=== PATIENT | male | born 1965 | race Caucasian/White ===

== ENCOUNTER 2017-10-20 13:21 | Inpatient (IN) | payer OTHER ==
[2017-10-20 14:14] VITALS: BMI 25.7
--- NOTE | 2017-10-20 16:39 | HP ---
"COWS - Scale Resting Pulse: 0= [place] 80 or Below Sweatin= Beads of Sweat on Face Restless Observation: 3= Extraneous Movement Pupil Size: 0= Normal to Room Light Bone or Joint Aches: 1= Mild Discomfort (Back pain r/t withdrawal) Runny Nose/ Eye Tearin= Runny Nose/Eyes GI Upset > 30mins: 0= None Tremor Observation: 2= Slight Tremor Visible Yawning Observation: 0= None Anxiety or Irritability: 1=Feels Anxious/Irritable Goose Flesh Skin: 0=Smooth Skin COWS Score: 12 Admission [facility] Chief Complaint: Here for heroin withdrawal. Allergies/Adverse Reactions: Allergies Allergy/AdvReac Type Severity Reaction Status Date / Time No Known Allergies Allergy Verified 10/20/17 15:35 History of Present Illness: Heroin use started at age 16. Has been using consistently for past 16 years. Had period of sobriety for 19 months, in 1999, while in residential treatment. Denies seizures or blackouts. Denies thoughts of harming self or others. Denies other illicit substance use - states it must have been cut into my heroin. Denies previous methadone or suboxone program. Smokes 15 cigarettes per day. Attempted to detox on own and now here for help detoxing. Search Terms: Ernst Tomlinson, 1965 Search Date: 10/20/2017 05:08:21 PM The Drug Utilization Report below displays all of the controlled substance prescriptions, if any, that your patient has filled in the last twelve months. The information displayed on this report is compiled from pharmacy submissions to the Department, and accurately reflects the information as submitted by the pharmacies. This report was requested by: Fatmata Snyder | Reference #: [id number] There are no results for the search terms that you entered. Exam Limitations: No Limitations - Ebola screening Have you traveled outside of the country in the last 21 days: No Have you had contact with anyone from an Ebola affected area: No Have you been sick,other than usual withdrawal symptoms: No Do you have a fever: No - Review of Systems Constitutional: Changes in sleep (Difficulty falling asleep and staying asleep) EENT: reports: Blurred Vision (Wears reading glasses), Nose Congestion (r/t w/ drawal), Dental Problems (Broken and missing teeth. Denies difficulty chwing or swallowing) Respiratory: reports: No Symptoms reported, Other (Asthma as a child. No exacerbation since then.) Cardiac: reports: No Symptoms Reported, Other (Denies chest pain, irregular heart beats, dyspnea.) GI: reports: No Symptoms Reported : reports: No Symptoms Reported Musculoskeletal: reports: Back Pain (r/t withdrawal) Integumentary: reports: No Symptoms Reported Neuro: reports: Tremors (r/t withdrawal) Endocrine: reports: No Symptoms Reported Hematology: reports: No Symptoms Reported Psychiatric: reports: Orientated x3, Anxious (r/t w/drawal) Patient History - Patient Medical History Hx Anemia: No Hx Asthma: Yes (as a child) Hx Chronic Obstructive Pulmonary Disease (COPD): No Hx Cardiac Disorders: No Hx Hypertension: No Hx Hypercholesterolemia: No Hx Pacemaker: No HX Cerebrovascular Accident: No Hx Seizures: No Hx Dementia: No Hx Diabetes: No Hx Gastrointestinal Disorders: No Hx Liver Disease: No Hx Genitourinary Disorders: No Hx Sexually Transmitted Disorders: Yes (gonorrhea at age 19) Hx Renal Disease (ESRD): No Hx Thyroid Disease: No Hx Human Immunodeficiency Virus (HIV): No (Last tested in 1999. Refuses testing. ) Hx Hepatitis C: No Hx Depression: No Hx Suicide Attempt: No Hx Schizophrenia: No - Patient Surgical History Past Surgical History: No Hx Neurologic Surgery: No Hx Cataract Extraction: No Hx Cardiac Surgery: No Hx Lung Surgery: No Hx Breast Surgery: No Hx Breast Biopsy: No Hx Abdominal Surgery: No Hx Appendectomy: No Hx Cholecystectomy: No Hx Genitourinary Surgery: No Hx Section: No Hx Orthopedic Surgery: No Anesthesia Reaction: No - PPD History Previous Implant?: Yes Documented Results: Negative w/o proof Implanted On Prior R Admission?: No PPD to be Administered?: Yes - Smoking Cessation Smoking history: Current every day smoker Have you smoked in the past 12 months: Yes Aproximately how many cigarettes per day: 15 Hx Chewing Tobacco Use: No Initiated information on smoking cessation: Yes 'Breaking Loose' booklet given: 10/20/17 - Substance & Tx. History Hx Alcohol Use: Yes Hx Substance Use: Yes Substance Use Type: Heroin Hx Substance Use Treatment: Yes (residential facility in 1999) - Substances Abused Heroin Route: Inhalation (Sniff) Frequency: Daily Amount used: 12-15 bags Age of first use: 16 Date of Last Use: 10/20/17 (7 am) Alcohol Route: Oral Frequency: 1-2 times per week Amount used: 3-6 12 oz beers Age of first use: 16 Date of Last Use: 10/18/17 Admission Physical Exam [facility] - Vital Signs Vital Signs: Vital Signs - 24 hr 10/20/17 14:13 Temperature 96.9 F L Pulse Rate 55 L Respiratory 18 Rate Blood Pressure 122/82 - Physical General Appearance: Yes: Tremorous (Mild tremors felt in hands), Sweating, Anxious HEENTM: Yes: EOMI, Hearing grossly Normal, Normal ENT Inspection, Normal Voice, NARCISA, Rhinorrhea (clear) Respiratory: Yes: Lungs Clear, Normal Breath Sounds, No Respiratory Distress Neck: Yes: No masses,lesions,Nodules, Supple Breast: Yes: Breast Exam Deferred Cardiology: Yes: Regular Rhythm, S1, S2, Bradycardia Abdominal: Yes: Non Tender, Flat, Increased Bowel Sounds Genitourinary: Yes: Within Normal Limits Back: Yes: Normal Inspection Musculoskeletal: Yes: full range of Motion, Gait Steady, Other (Crepitus of both knees upon extension. No c/o tenderness. No swelling. No ertythema or increased warmth.) Extremities: Yes: Normal Capillary Refill, Normal Range of Motion, Non-Tender, Tremors (Mild of hands upon arm extension) Neurological: Yes: windows 7 deployment lead II-XII NML intact, Fully Oriented, Alert, Motor Strength 5/5 Integumentary: Yes: Normal Color, Dry, Warm Lymphatic: Yes: Within Normal Limits - Diagnostic (1) Opioid dependence with withdrawal Current Visit: Yes Status: Acute (2) Nicotine dependence with withdrawal Current Visit: Yes Status: Acute Qualifiers: Nicotine product type: cigarettes Qualified Code(s): F17.213 - Nicotine dependence, cigarettes, with withdrawal (3) Bradycardia Current Visit: Yes Status: Chronic Cleared for Admission [facility] - Detox or Rehab [facility] Level of Care: Medically Supervised Detox Regimen/Protocol: Methadone [facility] Breath Alcohol Content Breath Alcohol Content: 0 Urine Drug Screen - Results Drug Screen Negative: No Urine Drug Screen Results: KAYDEN-Cocaine, OPI-Opiates, BZO-Benzodiazepines"
[2017-10-20] MEDS ORDERED: MAGNESIUM CITRATE 300 ML BOTTLE PO PRN (16:59)
[2017-10-20] MEDS ORDERED: MENTHOL/PHENOL 1 EACH UD MM PRN (16:59)
[2017-10-20] MEDS ORDERED: NICOTINE POLACRILEX 2 MG GUM BC PRN (16:59)
[2017-10-20] MEDS ORDERED: guaiFENesin/D-METHORPHAN HB 10 ML UNIT-DOSE CUPS PO PRN (16:59)
[2017-10-20] MEDS ORDERED: hydrOXYzine PAMOATE 50 MG CAPSULE (FP) PO PRN (16:59)
[2017-10-20] MEDS ORDERED: LOPERAMIDE HCL 2 MG CAPSULE PO PRN (16:59)
[2017-10-20] MEDS ORDERED: IBUPROFEN 400 MG TABLET (FP) PO PRN (16:59)
[2017-10-20] MEDS ORDERED: MAG HYDROX/AL HYDROX/SIMETH 30 ML UNIT-DOSE CUP PO PRN (16:59)
[2017-10-20] MEDS ORDERED: MAGNESIUM HYDROX 2400MG/30ML ORAL SUSPENSION 30 ML CUP PO PRN (16:59)
[2017-10-20] MEDS ORDERED: P-EPHED 60MG/TRIPROLIDI 2.5MG TABLET PO PRN (16:59)
[2017-10-20] MEDS ORDERED: ACETAMINOPHEN 325 MG TABLET (FP) PO PRN (16:59)
[2017-10-20] MEDS ORDERED: METHADONE HCL 10 MG TABLET (FOR DETOX USE ONLY) PO ONE ×2 (18:30→23:00)
[2017-10-20] MEDS: diazePAM 5 MG TABLET PO PRN (19:59)
[2017-10-20] MEDS: MELATONIN 5 MG TABLETS PO PRN (22:23)
[2017-10-20] MEDS: THIAMINE HCL 100 MG TABLET (FP) PO SCH (22:23)
[2017-10-21 02:33] LABS: URINE APPEARANCE CLEAR; URINE BILIRUBIN NEGATIVE (<2.0 mg/dL); URINE COLOR YELLOW; URINE GLUCOSE (UA) NEGATIVE (NEGATIVE); URINE KETONE NEGATIVE (NEGATIVE); URINE LEUK ESTERASE NEGATIVE (NEGATIVE); URINE NITRITE NEGATIVE (NEGATIVE); URINE PROTEIN NEGATIVE (NEGATIVE)
[2017-10-21] MEDS: diazePAM 5 MG TABLET PO PRN (09:19)
[2017-10-21] MEDS ORDERED: METHADONE HCL 10 MG TABLET (FOR DETOX USE ONLY) PO ONE (10:00)
[2017-10-21] MEDS: PRENATAL VITAMINS W/ FOLIC ACID TABLET (FP) PO SCH (10:19)
[2017-10-21] MEDS: NICOTINE 21 MG/24 HOURS TOPICAL PATCH TD SCH (10:19)
[2017-10-21 10:58] LABS: HEMATOCRIT 41.1 % (35.4-49); HEMOGLOBIN 14.2 GM/dL (11.7-16.9); MCH 33.4 pg (25.7-33.7); MCHC 34.5 g/dl (32.0-35.9); MEAN CELL VOLUME 96.7 fl (80-96); MEAN PLT VOLUME 10.8 fl (7.5-11.1); PLATELET COUNT 98 K/MM3 (134-434); RBC 4.25 M/mm3 (4.00-5.60); WHITE BLOOD COUNT 5.9 K/mm3 (4.0-10.0)
[2017-10-21 11:17] LABS: ALBUMIN 3.3 g/dl (3.4-5.0); ANION GAP 6 (8-16); BILIRUBIN,TOTAL 0.4 mg/dL (0.2-1.0); BLOOD UREA NITROGEN 13 mg/dL (7-18); CALCIUM 8.2 mg/dL (8.5-10.1); CHLORIDE 106 mmol/L (98-107); CO2 31 mmol/L (21-32); CREATININE 0.6 mg/dL (0.7-1.3); GLUCOSE,RANDOM 82 mg/dL (74-106); POTASSIUM 4.1 mmol/L (3.5-5.1); SGOT/AST 22 U/L (15-37); SGPT/ALT 37 U/L (12-78); SODIUM 143 mmol/L (136-145); TOT PROT 5.8 g/dl (6.4-8.2)
[2017-10-21 11:18] LABS: ALK PHOS 48 U/L (45-117)
--- NOTE | 2017-10-21 13:11 | PN ---
S COWS - Scale Resting Pulse: 0= [place] 80 or Below Sweatin= No chills or Flushing Restless Observation: 1= Difficult to Sit Still Pupil Size: 0= Normal to Room Light Bone or Joint Aches: 2= Severe Diffuse Aches Runny Nose/ Eye Tearin= None GI Upset > 30mins: 0= None Tremor Observation of Outstretched Hands: 2= Slight Tremor Visible Yawning Observation: 1= 1-2x During Session Anxiety or Irritability: 2=Irritable/Anxious Goose Flesh Skin: 3=Piloerection COWS Score: 11 S Progress Note (SOAP) Subjective: Interrupted Sleep, Fatigue, Body Aches, Anxious. Objective: PATIENT A & O X 3, OBSERVED AMBULATING ON UNIT. NO ACUTE DISTRESS. 10/21/17 13:09 Vital Signs Temperature 98.1 F 10/21/17 09:34 Pulse Rate 53 L 10/21/17 09:34 Respiratory Rate 18 10/21/17 09:34 Blood Pressure 124/79 10/21/17 09:34 O2 Sat by Pulse Oximetry (%) Laboratory Tests 10/20/17 10/21/17 10/21/17 23:24 07:00 07:00 WBC 5.9 RBC 4.25 Hgb 14.2 Hct 41.1 MCV 96.7 H MCH 33.4 MCHC 34.5 RDW 14.0 Plt Count 98 L MPV 10.8 Platelet Comment No clumping noted Sodium 143 Potassium 4.1 Chloride 106 Carbon Dioxide 31 Anion Gap 6 L BUN 13 Creatinine 0.6 L Creat Clearance w eGFR > 60 Random Glucose 82 Calcium 8.2 L Total Bilirubin 0.4 AST 22 ALT 37 Alkaline Phosphatase 48 Total Protein 5.8 L Albumin 3.3 L Urine Color Yellow Urine Appearance Clear Urine pH 5.0 Ur Specific [place] 1.016 Urine Protein Negative Urine Glucose (UA) Negative Urine Ketones Negative Urine Blood Negative Urine Nitrite Negative Urine Bilirubin Negative Urine Urobilinogen 2.0 Ur Leukocyte Esterase Negative LABS NOTED. RPR RESULT PENDING. 10/21/17 13:11 Assessment: 10/21/17 13:09 WITHDRAWAL SYMPTOMS. THROMBOCYTOPENIA. 10/21/17 13:11 Plan: CONTINUE DETOX.
--- NOTE | 2017-10-21 16:29 | EKG ---
Test Reason : Blood Pressure : / mmHG Vent. Rate : 055 BPM Atrial Rate : 055 BPM P-R Int : 144 ms QRS Dur : 108 ms QT Int : 442 ms P-R-T Axes : 028 084 036 degrees QTc Int : 422 ms SINUS BRADYCARDIA OTHERWISE NORMAL ECG NO PREVIOUS ECGS AVAILABLE Confirmed by Davis Webster MD ([id number]) on 10/21/2017 4:29:07 PM Referred By: Confirmed By:Davis Webster MD
[2017-10-21] MEDS: MELATONIN 5 MG TABLETS PO PRN (22:27)
[2017-10-21] MEDS: THIAMINE HCL 100 MG TABLET (FP) PO SCH (22:28)
[2017-10-22] MEDS: diazePAM 5 MG TABLET PO PRN (09:41)
[2017-10-22] MEDS ORDERED: METHADONE HCL 5 MG TABLET (FOR DETOX USE ONLY) PO ONE (10:00)
[2017-10-22] MEDS: PRENATAL VITAMINS W/ FOLIC ACID TABLET (FP) PO SCH (10:41)
[2017-10-22] MEDS: NICOTINE 21 MG/24 HOURS TOPICAL PATCH TD SCH (10:43)
--- NOTE | 2017-10-22 13:31 | PN ---
BHS COWS - Scale Resting Pulse: 0= [place] 80 or Below Sweatin= Chills/Flushing Restless Observation: 0= Sits Still Pupil Size: 0= Normal to Room Light Bone or Joint Aches: 2= Severe Diffuse Aches Runny Nose/ Eye Tearin= Nasal Congestion GI Upset > 30mins: 0= None Tremor Observation of Outstretched Hands: 0= None Yawning Observation: 2= >3x During Session Anxiety or Irritability: 2=Irritable/Anxious Goose Flesh Skin: 3=Piloerection COWS Score: 11 BHS Progress Note (SOAP) Subjective: Interrupted Sleep, Fatigue, Body Aches, Anxious. Objective: PATIENT A & O X 3, OBSERVED AMBULATING ON UNIT. NO ACUTE DISTRESS. 10/22/17 13:32 Vital Signs Temperature 98.1 F 10/22/17 09:15 Pulse Rate 50 L 10/22/17 09:15 Respiratory Rate 16 10/22/17 09:15 Blood Pressure 138/81 10/22/17 09:15 O2 Sat by Pulse Oximetry (%) Laboratory Tests 10/20/17 10/21/17 10/21/17 23:24 07:00 07:00 WBC 5.9 RBC 4.25 Hgb 14.2 Hct 41.1 MCV 96.7 H MCH 33.4 MCHC 34.5 RDW 14.0 Plt Count 98 L MPV 10.8 Platelet Comment No clumping noted Sodium 143 Potassium 4.1 Chloride 106 Carbon Dioxide 31 Anion Gap 6 L BUN 13 Creatinine 0.6 L Creat Clearance w eGFR > 60 Random Glucose 82 Calcium 8.2 L Total Bilirubin 0.4 AST 22 ALT 37 Alkaline Phosphatase 48 Total Protein 5.8 L Albumin 3.3 L Urine Color Yellow Urine Appearance Clear Urine pH 5.0 Ur Specific [place] 1.016 Urine Protein Negative Urine Glucose (UA) Negative Urine Ketones Negative Urine Blood Negative Urine Nitrite Negative Urine Bilirubin Negative Urine Urobilinogen 2.0 Ur Leukocyte Esterase Negative RPR Titer 10/21/17 07:00 WBC RBC Hgb Hct MCV MCH MCHC RDW Plt Count MPV Platelet Comment Sodium Potassium Chloride Carbon Dioxide Anion Gap BUN Creatinine Creat Clearance w eGFR Random Glucose Calcium Total Bilirubin AST ALT Alkaline Phosphatase Total Protein Albumin Urine Color Urine Appearance Urine pH Ur Specific [place] Urine Protein Urine Glucose (UA) Urine Ketones Urine Blood Urine Nitrite Urine Bilirubin Urine Urobilinogen Ur Leukocyte Esterase RPR Titer Nonreactive LABS NOTED. Assessment: 10/22/17 13:32 WITHDRAWAL SYMPTOMS. THROMBOCYTOPENIA. 10/22/17 13:33 Plan: CONTINUE DETOX.
[2017-10-22] MEDS: THIAMINE HCL 100 MG TABLET (FP) PO SCH (21:16)
[2017-10-22] MEDS: MELATONIN 5 MG TABLETS PO PRN (21:16)
[2017-10-23] MEDS: diazePAM 5 MG TABLET PO PRN ×3 (08:26→16:30)
[2017-10-23] MEDS ORDERED: METHADONE HCL 5 MG TABLET (FOR DETOX USE ONLY) PO ONE (10:00)
[2017-10-23] MEDS: PRENATAL VITAMINS W/ FOLIC ACID TABLET (FP) PO SCH (10:26)
[2017-10-23] MEDS: NICOTINE 21 MG/24 HOURS TOPICAL PATCH TD SCH (10:28)
--- NOTE | 2017-10-23 12:00 | PN ---
BHS Progress Note (SOAP) Subjective: Fatigue, Sweating, Body Aches. Objective: PATIENT A & O X 3, OBSERVED AMBULATING ON UNIT. NO ACUTE DISTRESS. 10/23/17 11:58 Vital Signs Temperature 97.8 F 10/23/17 09:33 Pulse Rate 49 L 10/23/17 09:33 Respiratory Rate 18 10/23/17 09:33 Blood Pressure 130/75 10/23/17 09:33 O2 Sat by Pulse Oximetry (%) Laboratory Tests 10/20/17 10/21/17 10/21/17 23:24 07:00 07:00 WBC 5.9 RBC 4.25 Hgb 14.2 Hct 41.1 MCV 96.7 H MCH 33.4 MCHC 34.5 RDW 14.0 Plt Count 98 L MPV 10.8 Platelet Comment No clumping noted Sodium 143 Potassium 4.1 Chloride 106 Carbon Dioxide 31 Anion Gap 6 L BUN 13 Creatinine 0.6 L Creat Clearance w eGFR > 60 Random Glucose 82 Calcium 8.2 L Total Bilirubin 0.4 AST 22 ALT 37 Alkaline Phosphatase 48 Total Protein 5.8 L Albumin 3.3 L Urine Color Yellow Urine Appearance Clear Urine pH 5.0 Ur Specific [place] 1.016 Urine Protein Negative Urine Glucose (UA) Negative Urine Ketones Negative Urine Blood Negative Urine Nitrite Negative Urine Bilirubin Negative Urine Urobilinogen 2.0 Ur Leukocyte Esterase Negative RPR Titer 10/21/17 07:00 WBC RBC Hgb Hct MCV MCH MCHC RDW Plt Count MPV Platelet Comment Sodium Potassium Chloride Carbon Dioxide Anion Gap BUN Creatinine Creat Clearance w eGFR Random Glucose Calcium Total Bilirubin AST ALT Alkaline Phosphatase Total Protein Albumin Urine Color Urine Appearance Urine pH Ur Specific [place] Urine Protein Urine Glucose (UA) Urine Ketones Urine Blood Urine Nitrite Urine Bilirubin Urine Urobilinogen Ur Leukocyte Esterase RPR Titer Nonreactive LABS NOTED. Assessment: 10/23/17 11:59 WITHDRAWAL SYMPTOMS. Plan: CONTINUE DETOX. INCREASE DAILY PO FLUID INTAKE. ENCOURAGE AMBULATION.
[2017-10-23] MEDS: THIAMINE HCL 100 MG TABLET (FP) PO SCH (22:30)
[2017-10-23] MEDS: MELATONIN 5 MG TABLETS PO PRN (22:31)
[2017-10-24] MEDS ORDERED: METHADONE HCL 10 MG TABLET (FOR DETOX USE ONLY) PO ONE (10:00)
[2017-10-24] MEDS: PRENATAL VITAMINS W/ FOLIC ACID TABLET (FP) PO SCH (10:14)
[2017-10-24] MEDS: NICOTINE 21 MG/24 HOURS TOPICAL PATCH TD SCH (10:16)
[2017-10-24 14:26] VITALS: BP 107/77; PULSE 85; TEMP 97.1
--- NOTE | 2017-10-24 17:03 | PN ---
BHS Progress Note (SOAP) Subjective: Patient reports mild body aches, but denies any other withdrawal symptoms at this time. Objective: PATIENT A & O X 3, OBSERVED AMBULATING ON UNIT. NO ACUTE DISTRESS. 10/24/17 17:01 Vital Signs Temperature 97.1 F L 10/24/17 14:00 Pulse Rate 85 10/24/17 14:00 Respiratory Rate 18 10/24/17 14:00 Blood Pressure 107/77 10/24/17 14:00 O2 Sat by Pulse Oximetry (%) Laboratory Tests 10/20/17 10/21/17 10/21/17 23:24 07:00 07:00 WBC 5.9 RBC 4.25 Hgb 14.2 Hct 41.1 MCV 96.7 H MCH 33.4 MCHC 34.5 RDW 14.0 Plt Count 98 L MPV 10.8 Platelet Comment No clumping noted Sodium 143 Potassium 4.1 Chloride 106 Carbon Dioxide 31 Anion Gap 6 L BUN 13 Creatinine 0.6 L Creat Clearance w eGFR > 60 Random Glucose 82 Calcium 8.2 L Total Bilirubin 0.4 AST 22 ALT 37 Alkaline Phosphatase 48 Total Protein 5.8 L Albumin 3.3 L Urine Color Yellow Urine Appearance Clear Urine pH 5.0 Ur Specific [place] 1.016 Urine Protein Negative Urine Glucose (UA) Negative Urine Ketones Negative Urine Blood Negative Urine Nitrite Negative Urine Bilirubin Negative Urine Urobilinogen 2.0 Ur Leukocyte Esterase Negative RPR Titer 10/21/17 07:00 WBC RBC Hgb Hct MCV MCH MCHC RDW Plt Count MPV Platelet Comment Sodium Potassium Chloride Carbon Dioxide Anion Gap BUN Creatinine Creat Clearance w eGFR Random Glucose Calcium Total Bilirubin AST ALT Alkaline Phosphatase Total Protein Albumin Urine Color Urine Appearance Urine pH Ur Specific [place] Urine Protein Urine Glucose (UA) Urine Ketones Urine Blood Urine Nitrite Urine Bilirubin Urine Urobilinogen Ur Leukocyte Esterase RPR Titer Nonreactive LABS NOTED. 10/24/17 17:03 Assessment: 10/24/17 17:01 COMPLETION OF DETOX REGIMEN. Plan: PATIENT SCHEDULED FOR DISCHARGE FROM DETOX UNIT TODAY.
--- NOTE | 2017-10-24 17:07 | DS ---
[facility] Detox Discharge Summary Admission Date: 10/20/17 Discharge Date: 10/24/17 - History Present History: Opioid Dependence Additional Comments: PATIENT ADVISED TO CONSIDER LOCAL 12-STEP/NA OUTPATIENT SUPPORT GROUPS FOR AFTERCARE. PATIENT WAS DISCHARGED FROM DETOX UNIT IN STABLE MEDICAL CONDITION. Pertinent Past History: History of Bradycardia, History of Asthma (during Childhood), Nicotine Dependence. - Physical Exam Results Vital Signs: Vital Signs Temperature 97.1 F L 10/24/17 14:00 Pulse Rate 85 10/24/17 14:00 Respiratory Rate 18 10/24/17 14:00 Blood Pressure 107/77 10/24/17 14:00 O2 Sat by Pulse Oximetry (%) Pertinent Admission Physical Exam Findings: WITHDRAWAL SYMPTOMS. Laboratory Tests 10/20/17 10/21/17 10/21/17 23:24 07:00 07:00 WBC 5.9 RBC 4.25 Hgb 14.2 Hct 41.1 MCV 96.7 H MCH 33.4 MCHC 34.5 RDW 14.0 Plt Count 98 L MPV 10.8 Platelet Comment No clumping noted Sodium 143 Potassium 4.1 Chloride 106 Carbon Dioxide 31 Anion Gap 6 L BUN 13 Creatinine 0.6 L Creat Clearance w eGFR > 60 Random Glucose 82 Calcium 8.2 L Total Bilirubin 0.4 AST 22 ALT 37 Alkaline Phosphatase 48 Total Protein 5.8 L Albumin 3.3 L Urine Color Yellow Urine Appearance Clear Urine pH 5.0 Ur Specific [place] 1.016 Urine Protein Negative Urine Glucose (UA) Negative Urine Ketones Negative Urine Blood Negative Urine Nitrite Negative Urine Bilirubin Negative Urine Urobilinogen 2.0 Ur Leukocyte Esterase Negative RPR Titer 10/21/17 07:00 WBC RBC Hgb Hct MCV MCH MCHC RDW Plt Count MPV Platelet Comment Sodium Potassium Chloride Carbon Dioxide Anion Gap BUN Creatinine Creat Clearance w eGFR Random Glucose Calcium Total Bilirubin AST ALT Alkaline Phosphatase Total Protein Albumin Urine Color Urine Appearance Urine pH Ur Specific [place] Urine Protein Urine Glucose (UA) Urine Ketones Urine Blood Urine Nitrite Urine Bilirubin Urine Urobilinogen Ur Leukocyte Esterase RPR Titer Nonreactive LABS NOTED. - Treatment Hospital Course: Detox Protocol Followed, Detoxed Safely, Responded well, Discharged Condition Good Patient has Accepted a Rehab Referral to: PATIENT ADVISED TO CONSIDER LOCAL 12- STEP/NA OUTPATIENT SUPPORT GROUPS. - Medication Discharge Medications: Ambulatory Orders NK [No Known Home Medication] 10/20/17 - Diagnosis (1) Nicotine dependence with withdrawal Status: Acute Qualifiers: Nicotine product type: cigarettes Qualified Code(s): F17.213 - Nicotine dependence, cigarettes, with withdrawal (2) Opioid dependence with withdrawal Status: Acute (3) Bradycardia Status: Chronic - AMA Did Patient Leave Against Medical Advice: No
[2017-10-25] MEDS ORDERED: METHADONE HCL 5 MG TABLET (FOR DETOX USE ONLY) PO ONE (06:00)
== END 2017-10-24 15:15 | disposition home or self-care (01) | DRG 773 ==
LOC: YASAS 13:21 → Y3N 18:07
PROVIDERS: ADMIT Surgery; ATTEND Surgery
PROC: HZ2ZZZZ Detoxification Services for Substance Abuse Treatment (ICD-10-PCS; principal; 2017-10-20)
DX: F11.23 Opioid dependence with withdrawal (principal); F17.213 Nicotine dependence, cigarettes, with withdrawal; R00.1 Bradycardia, unspecified; D69.6 Thrombocytopenia, unspecified; Z87.438 Personal history of other diseases of male genital organs; Z87.09 Personal history of other diseases of the respiratory system
CPT/HCPCS: 36415; 80053; 81003; 85027; 86593; 93005; 93010

== ENCOUNTER 2017-11-26 11:57 | Inpatient (IN) | payer OTHER ==
[2017-11-26 13:12] VITALS: BMI 24.9
--- NOTE | 2017-11-26 17:41 | HP ---
COWS - Scale Resting Pulse: 0= [place] 80 or Below Sweatin=Flushed/Facial Moisture Restless Observation: 1= Difficult to Sit Still Pupil Size: 1= Pupils >than Normal Bone or Joint Aches: 1= Mild Discomfort Runny Nose/ Eye Tearin= Runny Nose/Eyes GI Upset > 30mins: 0= None Tremor Observation: 1= Tremor [place], Not Seen Yawning Observation: 2= >3x During Session Anxiety or Irritability: 2=Irritable/Anxious Goose Flesh Skin: 0=Smooth Skin COWS Score: 12 Admission [facility] Chief Complaint: opioid withdrawal symptoms Allergies/Adverse Reactions: Allergies Allergy/AdvReac Type Severity Reaction Status Date / Time No Known Allergies Allergy Verified 11/26/17 14:59 History of Present Illness: 52 yo male with hx of heroin (nasal) since age 16 with consistent use and nicotine dependence is here seeking detox. Completed detox at [facility] 10/20/17 -. Denies suicidal / homicidal ideation or hx of suicide attempts. Denies any legal troubles at this time. Denies hx of overdose, blackouts or seizures. longest period of sobriety for 19 months, in 1999, while in residential treatment. Exam Limitations: No Limitations - Ebola screening Have you traveled outside of the country in the last 21 days: No Have you had contact with anyone from an Ebola affected area: No Have you been sick,other than usual withdrawal symptoms: No Do you have a fever: No - Review of Systems Constitutional: Chills, Diaphoresis, Loss of Appetite, Changes in sleep, Unintentional Wgt. Loss (5 lbs in last ten days) EENT: reports: No Symptoms Reported Respiratory: reports: No Symptoms reported Cardiac: reports: No Symptoms Reported GI: reports: Poor Appetite, Poor Fluid Intake : reports: No Symptoms Reported Musculoskeletal: reports: Back Pain, Joint Pain Integumentary: reports: Sweating Neuro: reports: No Symptoms reported Endocrine: reports: Increased Thirst Hematology: reports: No Symptoms Reported Psychiatric: reports: Orientated x3, Depressed Other Systems: Reviewed and Negative Patient History - Patient Medical History Hx Anemia: No Hx Asthma: No Hx Chronic Obstructive Pulmonary Disease (COPD): No Hx Cardiac Disorders: No Hx Hypertension: No Hx Hypercholesterolemia: No Hx Pacemaker: No HX Cerebrovascular Accident: No Hx Seizures: No Hx Dementia: No Hx Diabetes: No Hx Gastrointestinal Disorders: No Hx Liver Disease: No Hx Genitourinary Disorders: No Hx Sexually Transmitted Disorders: Yes (gonorrhea at age 17) Hx Renal Disease (ESRD): No Hx Thyroid Disease: No Hx Human Immunodeficiency Virus (HIV): No (Last tested in 1999. Refuses testing. ) Hx Hepatitis C: No Hx Depression: No Hx Suicide Attempt: No Hx Bipolar Disorder: No Hx Schizophrenia: No - Patient Surgical History Past Surgical History: No Hx Neurologic Surgery: No Hx Cataract Extraction: No Hx Cardiac Surgery: No Hx Lung Surgery: No Hx Breast Surgery: No Hx Breast Biopsy: No Hx Abdominal Surgery: No Hx Appendectomy: No Hx Cholecystectomy: No Hx Genitourinary Surgery: No Hx Section: No Hx Orthopedic Surgery: No Anesthesia Reaction: No - PPD History Previous Implant?: Yes Documented Results: Negative w/proof Implanted On Prior [facility] Admission?: Yes Date: 10/22/17 Results: 0 mm PPD to be Administered?: No - Smoking Cessation Smoking history: Current every day smoker Have you smoked in the past 12 months: Yes Aproximately how many cigarettes per day: 15 Hx Chewing Tobacco Use: No Initiated information on smoking cessation: Yes 'Breaking Loose' booklet given: 11/26/17 - Substance & Tx. History Hx Alcohol Use: No Hx Substance Use: Yes Substance Use Type: Heroin Hx Substance Use Treatment: Yes (Completed detox at [facility] 10/20/17 -10/24) - Substances Abused Heroin Route: Inhalation Frequency: Daily Amount used: 10-15 bags Age of first use: 16 Date of Last Use: 11/26/17 Family Disease History - Family Disease History Family History: Denies Admission Physical Exam [facility] - Vital Signs Vital Signs: Vital Signs - 24 hr 11/26/17 13:11 Temperature 98.8 F Pulse Rate 54 L Respiratory 18 Rate Blood Pressure 108/86 - Physical General Appearance: Yes: Appropriately Dressed, Sweating, Anxious HEENTM: Yes: EOMI, Hearing grossly Normal, Normal ENT Inspection, Normocephalic , Normal Voice, NARCISA, Pharynx Normal, Tm's normal Respiratory: Yes: Within Normal Limits Neck: Yes: Within Normal Limits Breast: Yes: Breast Exam Deferred Cardiology: Yes: Regular Rhythm, Other (bradycardia) Abdominal: Yes: Normal Bowel Sounds, Non Tender, Flat, Soft Genitourinary: Yes: Within Normal Limits Back: Yes: Normal Inspection Musculoskeletal: Yes: full range of Motion, Gait Steady, Pelvis Stable, Back pain Extremities: Yes: Normal Capillary Refill, Normal Inspection, Normal Range of Motion, Non-Tender 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, Fully Oriented, Alert, Motor Strength 5/5, Depressed Affect Integumentary: Yes: Normal Color, Warm, Diaphoresis Lymphatic: Yes: Within Normal Limits - Diagnostic (1) Nicotine dependence with withdrawal Current Visit: Yes Status: Acute Qualifiers: Nicotine product type: cigarettes Qualified Code(s): F17.213 - Nicotine dependence, cigarettes, with withdrawal (2) Opioid dependence with withdrawal Current Visit: Yes Status: Acute (3) Bradycardia Current Visit: Yes Status: Chronic Cleared for Admission [facility] - Detox or Rehab [facility] Level of Care: Medically Managed Detox Regimen/Protocol: Methadone [facility] Breath Alcohol Content Breath Alcohol Content: 0 Urine Drug Screen - Results Drug Screen Negative: No Urine Drug Screen Results: OPI-Opiates, BZO-Benzodiazepines
[2017-11-26] MEDS ORDERED: MAGNESIUM HYDROX 2400MG/30ML ORAL SUSPENSION 30 ML CUP PO PRN (17:46)
[2017-11-26] MEDS ORDERED: MAG HYDROX/AL HYDROX/SIMETH 30 ML UNIT-DOSE CUP PO PRN (17:46)
[2017-11-26] MEDS ORDERED: P-EPHED 60MG/TRIPROLIDI 2.5MG TABLET PO PRN (17:46)
[2017-11-26] MEDS ORDERED: MENTHOL/PHENOL 1 EACH UD MM PRN (17:46)
[2017-11-26] MEDS ORDERED: NICOTINE POLACRILEX 2 MG GUM BC PRN (17:46)
[2017-11-26] MEDS ORDERED: IBUPROFEN 400 MG TABLET (FP) PO PRN (17:46)
[2017-11-26] MEDS ORDERED: guaiFENesin/D-METHORPHAN HB 10 ML UNIT-DOSE CUPS PO PRN (17:46)
[2017-11-26] MEDS ORDERED: MAGNESIUM CITRATE 300 ML BOTTLE PO PRN (17:46)
[2017-11-26] MEDS ORDERED: LOPERAMIDE HCL 2 MG CAPSULE PO PRN (17:46)
[2017-11-26] MEDS ORDERED: ACETAMINOPHEN 325 MG TABLET (FP) PO PRN (17:46)
[2017-11-26] MEDS ORDERED: METHADONE HCL 10 MG TABLET (FOR DETOX USE ONLY) PO ONE ×2 (18:15→23:00)
[2017-11-26] MEDS: diazePAM 5 MG TABLET PO PRN ×2 (18:16→22:10)
[2017-11-26] MEDS ORDERED: MELATONIN 5 MG TABLETS PO PRN (22:00)
[2017-11-26] MEDS: THIAMINE HCL 100 MG TABLET (FP) PO SCH (22:10)
[2017-11-27] LABS: URINE APPEARANCE CLEAR; URINE BILIRUBIN NEGATIVE (<2.0 mg/dL); URINE COLOR DKYELLOW; URINE GLUCOSE (UA) NEGATIVE (NEGATIVE); URINE KETONE NEGATIVE (NEGATIVE); URINE LEUK ESTERASE NEGATIVE (NEGATIVE); URINE NITRITE NEGATIVE (NEGATIVE); URINE PROTEIN NEGATIVE (NEGATIVE); URINE UROBILINOGEN NEGATIVE mg/dL (0.2-1.0)
--- NOTE | 2017-11-27 07:35 | CONSULT ---
[facility] Psychiatric Consult - Data Date of interview: 11/27/17 Admission source: [facility] Identifying data: Karyna a 52 years old male, single , unemployed, living with roommate, with no psychiatric hospitalization history, with history of heroin (nasal) and Nicotine dependence since age 16 with consistent use, is here seeking detox. Substance Abuse History: Smoking history: Current every day smoker. Have you smoked in the past 12 months: Yes. Aproximately how many cigarettes per day: 15. Hx Chewing Tobacco Use: No. Initiated information on smoking cessation: Yes. 'Breaking Loose' booklet given: 11/26/17. - Substance & Tx. History. Hx Alcohol Use: No. Hx Substance Use: Yes. Substance Use Type: Heroin. Hx Substance Use Treatment: Yes (Completed detox at [facility] 10/20/17 -10/24). - Substances Abused. Heroin. Route: Inhalation. Frequency: Daily. Amount used: 10-15 bags. Age of first use: 16. Date of Last Use: 11/26/17 Medical History: History of Bradicartdia. Denies any significant medical issues Psychiatric History: Patient reports no psychiatric hospitalization history. Reports no medications taking prior to admission. Denies suicidal, homicidal history Physical/Sexual Abuse/Trauma History: Denies Additional Comment: Observation. Detox Unit Care Protocol Mental Status Exam - Mental Status Exam Alert and Oriented to: Person Cognitive Function: Fair Patient Appearance: Unkempt Mood: Sad Affect: Flat Patient Behavior: Sedated Speech Pattern: Delayed Voice Loudness: Mildly Soft/Quiet Thought Process: Circumstantial Thought Disorder: Being Controlled Hallucinations: Denies Suicidal Ideation: Denies Homicidal Ideation: Denies Insight/Judgement: Fair Sleep: Difficulty falling asleep Appetite: Weight loss Muscle strength/Tone: Mild Hypotonicity Gait/Station: Shuffling Additional Comments: Observation. Detox Unit Care Protocol Psychiatric Findings - Problem List ([place] 1, 2,3) (1) Drug-induced mood disorder Status: Suspected (2) Nicotine dependence with withdrawal Status: Acute Qualifiers: Nicotine product type: cigarettes Qualified Code(s): F17.213 - Nicotine dependence, cigarettes, with withdrawal (3) Opioid dependence with withdrawal Status: Acute (4) Bradycardia Status: Chronic - Initial Treatment Plan Initial Treatment Plan: Observation. Detox Unit Care Protocol
[2017-11-27] MEDS ORDERED: METHADONE HCL 10 MG TABLET (FOR DETOX USE ONLY) PO ONE (10:00)
[2017-11-27] MEDS: NICOTINE 14 MG/24 HOURS TOPICAL PATCH TD SCH (10:18)
[2017-11-27] MEDS: PRENATAL VITAMINS W/ FOLIC ACID TABLET (FP) PO SCH (10:18)
[2017-11-27 10:41] LABS: HEMATOCRIT 46.3 % (35.4-49); HEMOGLOBIN 15.5 GM/dL (11.7-16.9); MCH 32.7 pg (25.7-33.7); MCHC 33.4 g/dl (32.0-35.9); MEAN CELL VOLUME 97.7 fl (80-96); MEAN PLT VOLUME 10.7 fl (7.5-11.1); PLATELET COUNT 85 K/MM3 (134-434); RBC 4.74 M/mm3 (4.00-5.60); RDW 13.7 % (11.9-15.9); WHITE BLOOD COUNT 3.7 K/mm3 (4.0-10.0)
[2017-11-27 10:52] LABS: CHLORIDE 102 mmol/L (98-107); SODIUM 140 mmol/L (136-145)
[2017-11-27 10:59] LABS: ALBUMIN 4.1 g/dl (3.4-5.0); ALK PHOS 69 U/L (45-117); ANION GAP 9 MMOL/L (8-16); BILIRUBIN,TOTAL 0.3 mg/dL (0.2-1.0); BLOOD UREA NITROGEN 18 mg/dL (7-18); CALCIUM 8.9 mg/dL (8.5-10.1); CO2 29 mmol/L (21-32); CREATININE 0.6 mg/dL (0.7-1.3); GLUCOSE,RANDOM 112 mg/dL (74-106); SGOT/AST 37 U/L (15-37); SGPT/ALT 74 U/L (13-61); TOT PROT 7.6 g/dl (6.4-8.2)
--- NOTE | 2017-11-27 14:24 | PN ---
BHS COWS - Scale Resting Pulse: 0= [place] 80 or Below Sweatin= Chills/Flushing Restless Observation: 3= Extraneous Movement Pupil Size: 1= Pupils >than Normal Bone or Joint Aches: 2= Severe Diffuse Aches Runny Nose/ Eye Tearin= Runny Nose/Eyes GI Upset > 30mins: 2= Nausea/Diarrhea Tremor Observation of Outstretched Hands: 2= Slight Tremor Visible Yawning Observation: 1= 1-2x During Session Anxiety or Irritability: 1=Feels Anxious/Irritable Goose Flesh Skin: 0=Smooth Skin COWS Score: 15 BHS Progress Note (SOAP) Subjective: anxious sweat tremor body ache joints pain muscle cramp trouble sleep at night Objective: 11/27/17 14:26 Vital Signs Temperature 98.1 F 11/27/17 13:57 Pulse Rate 63 11/27/17 13:57 Respiratory Rate 18 11/27/17 13:57 Blood Pressure 132/92 11/27/17 13:57 O2 Sat by Pulse Oximetry (%) Laboratory Last Values WBC 3.7 K/mm3 (4.0-10.0) L 11/27/17 05:50 RBC 4.74 M/mm3 (4.00-5.60) 11/27/17 05:50 Hgb 15.5 GM/dL (11.7-16.9) 11/27/17 05:50 Hct 46.3 % (35.4-49) 11/27/17 05:50 MCV 97.7 fl (80-96) H 11/27/17 05:50 MCH 32.7 pg (25.7-33.7) 11/27/17 05:50 MCHC 33.4 g/dl (32.0-35.9) 11/27/17 05:50 RDW 13.7 % (11.9-15.9) 11/27/17 05:50 Plt Count 85 K/MM3 (134-434) L 11/27/17 05:50 MPV 10.7 fl (7.5-11.1) 11/27/17 05:50 Sodium 140 mmol/L (136-145) 11/27/17 05:50 Potassium 5.0 mmol/L (3.5-5.1) D 11/27/17 05:50 Chloride 102 mmol/L (98-107) 11/27/17 05:50 Carbon Dioxide 29 mmol/L (21-32) 11/27/17 05:50 Anion Gap 9 MMOL/L (8-16) 11/27/17 05:50 BUN 18 mg/dL (7-18) 11/27/17 05:50 Creatinine 0.6 mg/dL (0.7-1.3) L 11/27/17 05:50 Creat Clearance w eGFR > 60 (>60) 11/27/17 05:50 Random Glucose 112 mg/dL (74-106) H D 11/27/17 05:50 Calcium 8.9 mg/dL (8.5-10.1) 11/27/17 05:50 Total Bilirubin 0.3 mg/dL (0.2-1.0) 11/27/17 05:50 AST 37 U/L (15-37) 11/27/17 05:50 ALT 74 U/L (13-61) H 11/27/17 05:50 Alkaline Phosphatase 69 U/L (45-117) 11/27/17 05:50 Total Protein 7.6 g/dl (6.4-8.2) 11/27/17 05:50 Albumin 4.1 g/dl (3.4-5.0) 11/27/17 05:50 Urine Color Dkyellow 11/26/17 Unknown Urine Appearance Clear 11/26/17 Unknown Urine pH 5.0 (5.0-8.0) 11/26/17 Unknown Ur Specific [place] 1.025 (1.001-1.035) 11/26/17 Unknown Urine Protein Negative (NEGATIVE) 11/26/17 Unknown Urine Glucose (UA) Negative (NEGATIVE) 11/26/17 Unknown Urine Ketones Negative (NEGATIVE) 11/26/17 Unknown Urine Blood Negative (NEGATIVE) 11/26/17 Unknown Urine Nitrite Negative (NEGATIVE) 11/26/17 Unknown Urine Bilirubin Negative (<2.0 mg/dL) 11/26/17 Unknown Urine Urobilinogen Negative mg/dL (0.2-1.0) 11/26/17 Unknown Ur Leukocyte Esterase Negative (NEGATIVE) 11/26/17 Unknown RPR Titer Nonreactive (NONREACTIVE) 11/27/17 05:50 lab noted Assessment: 11/27/17 14:26 withdrawal sx Plan: continue detox
--- NOTE | 2017-11-27 15:41 | EKG ---
Test Reason : Blood Pressure : / mmHG Vent. Rate : 052 BPM Atrial Rate : 052 BPM P-R Int : 160 ms QRS Dur : 094 ms QT Int : 446 ms P-R-T Axes : 054 081 053 degrees QTc Int : 414 ms POOR DATA QUALITY, INTERPRETATION MAY BE ADVERSELY AFFECTED SINUS BRADYCARDIA WITH PREMATURE ATRIAL COMPLEXES OTHERWISE NORMAL ECG WHEN COMPARED WITH ECG OF 20-OCT-2017 19:33, PREMATURE ATRIAL COMPLEXES ARE NOW PRESENT T WAVE AMPLITUDE HAS INCREASED IN ANTEROLATERAL LEADS Confirmed by HARLEEN RAMOS MD ([id number]) on 11/27/2017 3:41:28 PM Referred By: Confirmed By:HARLEEN RAMOS MD
[2017-11-27] MEDS: diazePAM 5 MG TABLET PO PRN (22:45)
[2017-11-27] MEDS: THIAMINE HCL 100 MG TABLET (FP) PO SCH (22:45)
[2017-11-28] MEDS: PRENATAL VITAMINS W/ FOLIC ACID TABLET (FP) PO SCH (09:54)
[2017-11-28] MEDS: NICOTINE 14 MG/24 HOURS TOPICAL PATCH TD SCH (09:54)
--- NOTE | 2017-11-28 09:57 | PN ---
S COWS - Scale Resting Pulse: 0= [place] 80 or Below Sweatin=Flushed/Facial Moisture Restless Observation: 1= Difficult to Sit Still Pupil Size: 0= Normal to Room Light Bone or Joint Aches: 2= Severe Diffuse Aches Runny Nose/ Eye Tearin= Nasal Congestion GI Upset > 30mins: 1= Stomach Cramp Tremor Observation of Outstretched Hands: 2= Slight Tremor Visible Yawning Observation: 1= 1-2x During Session Anxiety or Irritability: 2=Irritable/Anxious Goose Flesh Skin: 3=Piloerection COWS Score: 15 BHS Progress Note (SOAP) Subjective: shakes sweats interrupted sleep body aches irritable Objective: 11/28/17 09:57 Vital Signs Temperature 97.9 F 11/28/17 09:55 Pulse Rate 60 11/28/17 09:55 Respiratory Rate 19 11/28/17 09:55 Blood Pressure 126/52 11/28/17 09:55 O2 Sat by Pulse Oximetry (%) Laboratory Tests 11/26/17 11/27/17 11/27/17 Unknown 05:50 05:50 WBC 3.7 L RBC 4.74 Hgb 15.5 Hct 46.3 MCV 97.7 H MCH 32.7 MCHC 33.4 RDW 13.7 Plt Count 85 L MPV 10.7 Sodium 140 Potassium 5.0 D Chloride 102 Carbon Dioxide 29 Anion Gap 9 BUN 18 Creatinine 0.6 L Creat Clearance w eGFR > 60 Random Glucose 112 H D Calcium 8.9 Total Bilirubin 0.3 AST 37 ALT 74 H Alkaline Phosphatase 69 Total Protein 7.6 Albumin 4.1 Urine Color Dkyellow Urine Appearance Clear Urine pH 5.0 Ur Specific [place] 1.025 Urine Protein Negative Urine Glucose (UA) Negative Urine Ketones Negative Urine Blood Negative Urine Nitrite Negative Urine Bilirubin Negative Urine Urobilinogen Negative Ur Leukocyte Esterase Negative RPR Titer 11/27/17 05:50 WBC RBC Hgb Hct MCV MCH MCHC RDW Plt Count MPV Sodium Potassium Chloride Carbon Dioxide Anion Gap BUN Creatinine Creat Clearance w eGFR Random Glucose Calcium Total Bilirubin AST ALT Alkaline Phosphatase Total Protein Albumin Urine Color Urine Appearance Urine pH Ur Specific [place] Urine Protein Urine Glucose (UA) Urine Ketones Urine Blood Urine Nitrite Urine Bilirubin Urine Urobilinogen Ur Leukocyte Esterase RPR Titer Nonreactive aaox3 ambulating no acute distress Assessment: 11/28/17 09:57 withdrawal sx Plan: continue detox increase fluids
[2017-11-28] MEDS ORDERED: METHADONE HCL 5 MG TABLET (FOR DETOX USE ONLY) PO ONE (10:00)
[2017-11-28] MEDS: THIAMINE HCL 100 MG TABLET (FP) PO SCH (22:28)
[2017-11-29] MEDS ORDERED: METHADONE HCL 5 MG TABLET (FOR DETOX USE ONLY) PO ONE (10:00)
[2017-11-29] MEDS: PRENATAL VITAMINS W/ FOLIC ACID TABLET (FP) PO SCH (10:07)
[2017-11-29] MEDS: NICOTINE 14 MG/24 HOURS TOPICAL PATCH TD SCH (10:07)
--- NOTE | 2017-11-29 15:52 | PN ---
BHS Progress Note (SOAP) Subjective: pt without complaints. O: Vital Signs - 24 hr 11/28/17 11/28/17 11/29/17 18:17 22:15 00:30 Temperature 98.2 F 98.1 F Pulse Rate 50 L 62 Respiratory 16 16 18 Rate Blood Pressure 130/77 119/81 11/29/17 11/29/17 11/29/17 03:30 07:48 08:51 Temperature 98.2 F 98.2 F Pulse Rate 57 L 65 Respiratory 16 18 16 Rate Blood Pressure 123/57 123/88 11/29/17 14:02 Temperature 98.2 F Pulse Rate 64 Respiratory 18 Rate Blood Pressure 131/65 Laboratory Tests 11/26/17 11/27/17 11/27/17 Unknown 05:50 05:50 WBC 3.7 L RBC 4.74 Hgb 15.5 Hct 46.3 MCV 97.7 H MCH 32.7 MCHC 33.4 RDW 13.7 Plt Count 85 L MPV 10.7 Sodium 140 Potassium 5.0 D Chloride 102 Carbon Dioxide 29 Anion Gap 9 BUN 18 Creatinine 0.6 L Creat Clearance w eGFR > 60 Random Glucose 112 H D Calcium 8.9 Total Bilirubin 0.3 AST 37 ALT 74 H Alkaline Phosphatase 69 Total Protein 7.6 Albumin 4.1 Urine Color Dkyellow Urine Appearance Clear Urine pH 5.0 Ur Specific [place] 1.025 Urine Protein Negative Urine Glucose (UA) Negative Urine Ketones Negative Urine Blood Negative Urine Nitrite Negative Urine Bilirubin Negative Urine Urobilinogen Negative Ur Leukocyte Esterase Negative RPR Titer 11/27/17 05:50 WBC RBC Hgb Hct MCV MCH MCHC RDW Plt Count MPV Sodium Potassium Chloride Carbon Dioxide Anion Gap BUN Creatinine Creat Clearance w eGFR Random Glucose Calcium Total Bilirubin AST ALT Alkaline Phosphatase Total Protein Albumin Urine Color Urine Appearance Urine pH Ur Specific [place] Urine Protein Urine Glucose (UA) Urine Ketones Urine Blood Urine Nitrite Urine Bilirubin Urine Urobilinogen Ur Leukocyte Esterase RPR Titer Nonreactive labs WNL VS WNL a/p: 52 yo male with hx of heroin (nasal) since age 16 with consistent use and nicotine dependence on detox protocols: pt doing well, continue detox protocol
[2017-11-29] MEDS: THIAMINE HCL 100 MG TABLET (FP) PO SCH (23:38)
[2017-11-30 09:31] VITALS: BP 116/79; PULSE 53; TEMP 98.2
[2017-11-30] MEDS ORDERED: METHADONE HCL 10 MG TABLET (FOR DETOX USE ONLY) PO ONE (10:00)
[2017-11-30] MEDS: NICOTINE 14 MG/24 HOURS TOPICAL PATCH TD SCH (10:06)
[2017-11-30] MEDS: PRENATAL VITAMINS W/ FOLIC ACID TABLET (FP) PO SCH (10:06)
--- NOTE | 2017-11-30 10:50 | DS ---
[facility] Detox Discharge Summary Admission Date: 11/26/17 Discharge Date: 11/30/17 - History Present History: Opioid Dependence Additional Comments: 52 years old male admitted on 11/26/17 for opiate withdrawal sx completed opiate detox regimen tolerated well denies opiate withdrawal sx alert oriented x 3 no acute distress aftercare at [facility] - Physical Exam Results Vital Signs: Vital Signs Temperature 98.2 F 11/30/17 09:31 Pulse Rate 53 L 11/30/17 09:31 Respiratory Rate 18 11/30/17 09:31 Blood Pressure 116/79 11/30/17 09:31 O2 Sat by Pulse Oximetry (%) Pertinent Admission Physical Exam Findings: opiate withdrawal sx Vital Signs Temperature 98.2 F 11/30/17 09:31 Pulse Rate 53 L 11/30/17 09:31 Respiratory Rate 18 11/30/17 09:31 Blood Pressure 116/79 11/30/17 09:31 O2 Sat by Pulse Oximetry (%) Laboratory Last Values WBC 3.7 K/mm3 (4.0-10.0) L 11/27/17 05:50 RBC 4.74 M/mm3 (4.00-5.60) 11/27/17 05:50 Hgb 15.5 GM/dL (11.7-16.9) 11/27/17 05:50 Hct 46.3 % (35.4-49) 11/27/17 05:50 MCV 97.7 fl (80-96) H 11/27/17 05:50 MCH 32.7 pg (25.7-33.7) 11/27/17 05:50 MCHC 33.4 g/dl (32.0-35.9) 11/27/17 05:50 RDW 13.7 % (11.9-15.9) 11/27/17 05:50 Plt Count 85 K/MM3 (134-434) L 11/27/17 05:50 MPV 10.7 fl (7.5-11.1) 11/27/17 05:50 Sodium 140 mmol/L (136-145) 11/27/17 05:50 Potassium 5.0 mmol/L (3.5-5.1) D 11/27/17 05:50 Chloride 102 mmol/L (98-107) 11/27/17 05:50 Carbon Dioxide 29 mmol/L (21-32) 11/27/17 05:50 Anion Gap 9 MMOL/L (8-16) 11/27/17 05:50 BUN 18 mg/dL (7-18) 11/27/17 05:50 Creatinine 0.6 mg/dL (0.7-1.3) L 11/27/17 05:50 Creat Clearance w eGFR > 60 (>60) 11/27/17 05:50 Random Glucose 112 mg/dL (74-106) H D 11/27/17 05:50 Calcium 8.9 mg/dL (8.5-10.1) 11/27/17 05:50 Total Bilirubin 0.3 mg/dL (0.2-1.0) 11/27/17 05:50 AST 37 U/L (15-37) 11/27/17 05:50 ALT 74 U/L (13-61) H 11/27/17 05:50 Alkaline Phosphatase 69 U/L (45-117) 11/27/17 05:50 Total Protein 7.6 g/dl (6.4-8.2) 11/27/17 05:50 Albumin 4.1 g/dl (3.4-5.0) 11/27/17 05:50 Urine Color Dkyellow 11/26/17 Unknown Urine Appearance Clear 11/26/17 Unknown Urine pH 5.0 (5.0-8.0) 11/26/17 Unknown Ur Specific [place] 1.025 (1.001-1.035) 11/26/17 Unknown Urine Protein Negative (NEGATIVE) 11/26/17 Unknown Urine Glucose (UA) Negative (NEGATIVE) 11/26/17 Unknown Urine Ketones Negative (NEGATIVE) 11/26/17 Unknown Urine Blood Negative (NEGATIVE) 11/26/17 Unknown Urine Nitrite Negative (NEGATIVE) 11/26/17 Unknown Urine Bilirubin Negative (<2.0 mg/dL) 11/26/17 Unknown Urine Urobilinogen Negative mg/dL (0.2-1.0) 11/26/17 Unknown Ur Leukocyte Esterase Negative (NEGATIVE) 11/26/17 Unknown RPR Titer Nonreactive (NONREACTIVE) 11/27/17 05:50 lab noted - Treatment Hospital Course: Detox Protocol Followed, Detoxed Safely, Responded well, Discharged Condition Good, Rehab Referral Accepted Patient has Accepted a Rehab Referral to: [facility] - Medication Discharge Medications: Ambulatory Orders NK [No Known Home Medication] 10/20/17 - Diagnosis (1) Bradycardia Status: Chronic (2) Nicotine dependence with withdrawal Status: Acute Qualifiers: Nicotine product type: cigarettes Qualified Code(s): F17.213 - Nicotine dependence, cigarettes, with withdrawal (3) Opioid dependence with withdrawal Status: Acute (4) Drug-induced mood disorder Status: Suspected - AMA Did Patient Leave Against Medical Advice: No
[2017-12-01] MEDS ORDERED: METHADONE HCL 5 MG TABLET (FOR DETOX USE ONLY) PO ONE (06:00)
== END 2017-11-30 11:16 | disposition home or self-care (01) | DRG 773 ==
LOC: YASAS 11:57 → Y6N 16:36
PROC: HZ2ZZZZ Detoxification Services for Substance Abuse Treatment (ICD-10-PCS; principal; 2017-11-26)
DX: F11.23 Opioid dependence with withdrawal (principal); F17.213 Nicotine dependence, cigarettes, with withdrawal; F19.24 Other psychoactive substance dependence with psychoactive substance-induced mood disorder; R00.1 Bradycardia, unspecified; Z86.19 Personal history of other infectious and parasitic diseases
CPT/HCPCS: 36415; 80053; 81003; 85027; 86593; 93005; 93010